=== PATIENT | female | born 1985 | race Caucasian/White ===

== ENCOUNTER 2017-02-02 19:01 | Inpatient (IN) | payer OTHER ==
[2017-02-02 21:37] LABS: BASOPHIL 0.2 % (0-2.0); EOSINOPHIL 0.7 % (0-4.5); MCH 29.7 pg (25.7-33.7); MCHC 33.8 g/dl (32.0-36.0); MEAN CELL VOLUME 87.9 fl (80-96); MEAN PLT VOLUME 9.1 fl (7.5-11.1); NEUTROPHILS 62.6 % (42.8-82.8); PLATELET COUNT 215 K/MM3 (134-434); RDW 13.6 % (11.6-15.6); WHITE BLOOD COUNT 7.5 K/mm3 (4.0-10.0)
[2017-02-02] MEDS ORDERED: PROMETHAZINE HCL 25 MG/1 ML VIAL IVPUSH ONE (21:42)
[2017-02-02] MEDS ORDERED: BUTORPHANOL TARTRATE 1 MG/ML VIAL IVPUSH PRN (21:42)
[2017-02-02] MEDS ORDERED: DEXTROSE 5%-LACTATED RINGERS 1,000 ML IV SCH (21:45)
[2017-02-02 21:51] LABS: INR 0.9 (0.82-1.09); PROTHROMBIN TIME (PATIENT) 9.9 SEC (9.98-11.88)
[2017-02-02 21:54] LABS: ACTIVATED PTT 26.7 SECONDS (26.9-34.4)
[2017-02-02 21:58] LABS: ANION GAP 10 (8-16); CALCIUM 8.9 mg/dL (8.5-10.1); CO2 23 mmol/L (21-32); CREATININE 0.5 mg/dL (0.55-1.02); GLUCOSE,RANDOM 77 mg/dL (74-106)
--- NOTE | 2017-02-02 22:11 | HP ---
Past Medical History - Primary Care Physician PCP:: Dandre Trammell - Admission Chief Complaint: 38 weeks, labor History of Present Illness: 31 yo f edc by sono 02/16/17, c/o contraction , cx 4 to 5 cm 75 vx -3 membrane bulging, fhr cat 1 , irregular contraction, History Source: Patient Limitations to Obtaining History: Language Barrier - Past Medical History ...: 2 ...Para: 0 ...Term: 0 ...: 1 ... Weeks Gestation by Dates: 38 ...EDC by Dates: 02/23/17 ...EDC by Sono: 02/16/17 Additional OB History: one delivery at 31 weeks - Past Surgical History Hx Myomectomy: No Hx Transabdominal Cerclage: No - Smoking History Smoking history: Never smoked Have you smoked in the past 12 months: No - Alcohol/Substance Use Hx Alcohol Use: No History of Substance Use: reports: None - Social History Usual Living Arrangement: Yes: With Spouse History of Recent Travel: No Home Medications - Allergies Allergies/Adverse Reactions: Allergies Allergy/AdvReac Type Severity Reaction Status Date / Time No Known Allergies Allergy Verified 09/18/15 00:04 - Home Medications Home Medications: Ambulatory Orders Vit #108/Iron/FA [ One Tablet] 1 each PO HS 09/03/15 Acetaminophen [Tylenol .Regular Strength -] 650 mg PO Q3H PRN #0 tablet Ibuprofen [Motrin -] 200 mg PO Q4H PRN #0 tablet 09/19/15 Miscellaneous Medical Supply [Breast Pump, Electronic] 1 each NR ASDIR #1 unit 09/19/15 Review of Systems - Review of Systems Constitutional: reports: No Symptoms Eyes: reports: No Symptoms HENT: reports: No Symptoms Neck: reports: No Symptoms Cardiovascular: reports: No Symptoms Respiratory: reports: No Symptoms Gastrointestinal: reports: No Symptoms Genitourinary: reports: No Symptoms Breasts: reports: No Symptoms Reported Musculoskeletal: reports: No Symptoms Integumentary: reports: No Symptoms Neurological: reports: No Symptoms Endocrine: reports: No Symptoms Hematology/Lymphatic: reports: No Symptoms Psychiatric: reports: No Symptoms Physical Exam - Maternity Constitutional: Yes: Well Nourished, No Distress, Calm Eyes: Yes: WNL, Conjunctiva Clear, EOM Intact HENT: Yes: WNL, Atraumatic, Normocephalic Neck: Yes: WNL, Supple, Trachea Midline Cardiovascular: Yes: WNL, Regular Rate and Rhythm Breast(s): Yes: WNL - Abdominal Exam/OB Fundal Height: 38 Number of Fetuses: Single Presentation: Vertex Contractions: Yes Regularity: Irregular Intensity: Mod/Strong Monitor Mode: External Heart Rate Location: [facility] Category: I Accelerations: Uniform - Vaginal Exam/OB Vaginal Bleediing: No Speculum Exam: No Dilatation (cm): 4 to 5 Effacement (%): 75 Amniotic Membrane Status: Bulging Presentation: Vertex/Position Station: -3 - Physical Exam Musculoskeletal: Yes: WNL Edema: Yes Edema: LLE: Trace, RLE: Trace Deep Tendon Reflex Grade: Normal +2 - Labs Lab Results: CBC, BMP 02/02/17 20:50 Problem List - Problems (1) with 38 completed weeks gestation Code(s): Z3A.38 - 38 WEEKS GESTATION OF (2) Labor established Code(s): CBT5101 - Assessment/Plan admit for vaginal delivery, fhm,
--- NOTE | 2017-02-02 22:23 | PN ---
Progress Note (short form) - Note Progress Note: cx 6 cm 80 vx -1 arom, clear, wants pain meds, fhr cat 1 Problem List - Problems (1) with 38 completed weeks gestation Code(s): Z3A.38 - 38 WEEKS GESTATION OF (2) Labor established Code(s): UPO9593 -
[2017-02-02 23:19] VITALS: BMI 49.1
[2017-02-03] MEDS ORDERED: FENTANYL/BUPIVACAINE/NS/PF - PCEA - 50 ML DISP.SYRIN EP SCH (02:00)
[2017-02-03] MEDS ORDERED: WITCH HAZEL 50% (TUCKS) 40 PAD/JAR PAD TP PRN (03:48)
[2017-02-03] MEDS ORDERED: oxyCODONE HCL 5 MG TABLET PO PRN (03:48)
[2017-02-03] MEDS ORDERED: BISACODYL 10 MG SUPP.RECT RC PRN (03:48)
[2017-02-03] MEDS ORDERED: BENZOCAINE 28 GM HEMORRHOIDAL OINTMENT TP PRN (03:48)
[2017-02-03] MEDS ORDERED: BENZOCAINE 20% 57 GM BOTTLE TP PRN (03:48)
[2017-02-03] MEDS ORDERED: METHYLERGONOVINE MALEATE 0.2 MG/1 ML AMP IM PRN (03:48)
[2017-02-03] MEDS ORDERED: D5W-LR W/ 20 UNITS OXYTOCIN 1,000 ML IV SCH (04:00)
[2017-02-03] MEDS: ACETAMINOPHEN 325 MG TABLET (FP) PO PRN ×3 (04:50→17:52)
[2017-02-03] MEDS: IBUPROFEN 600 MG TABLET (FP) PO PRN ×3 (04:50→17:51)
[2017-02-03] MEDS: FERROUS SO4 325 MG TABLET (FP) PO SCH ×2 (09:10→21:06)
[2017-02-03] MEDS: PRENATAL VITAMINS W/ FOLIC ACID TABLET (FP) PO SCH (09:12)
[2017-02-03] MEDS ORDERED: DIPHTH,PERTUSS(ACELL),TET 0.5 ML DISP.SYRIN IM ONE (10:00)
[2017-02-03] MEDS ORDERED: FLU VACC QS2017-18 36MOS UP/PF 60 MCG/0.5 ML SYRINGE IM ONE (10:00)
[2017-02-04] MEDS: ACETAMINOPHEN 325 MG TABLET (FP) PO PRN ×3 (02:49→18:35)
[2017-02-04] MEDS: IBUPROFEN 600 MG TABLET (FP) PO PRN ×3 (02:52→18:35)
[2017-02-04 08:15] LABS: BASOPHIL 0.4 % (0-2.0); EOSINOPHIL 0.9 % (0-4.5); MCH 29.6 pg (25.7-33.7); MCHC 33.4 g/dl (32.0-36.0); MEAN CELL VOLUME 88.7 fl (80-96); MEAN PLT VOLUME 8.7 fl (7.5-11.1); NEUTROPHILS 71.4 % (42.8-82.8); PLATELET COUNT 172 K/MM3 (134-434); RDW 13.8 % (11.6-15.6); WHITE BLOOD COUNT 10.8 K/mm3 (4.0-10.0)
[2017-02-04] MEDS: PRENATAL VITAMINS W/ FOLIC ACID TABLET (FP) PO SCH (09:26)
[2017-02-04] MEDS: FERROUS SO4 325 MG TABLET (FP) PO SCH ×2 (09:26→22:19)
--- NOTE | 2017-02-04 13:04 | PN ---
Post Progress Note - Subjective Subjective: 31 yo Para 2 status post vaginal delivery, seen and evaluated. Doing well Type of Delivery: Vital Signs: Vital Signs Temperature 98 F 02/04/17 08:50 Pulse Rate 69 02/04/17 08:50 Respiratory Rate 20 02/04/17 08:50 Blood Pressure 129/71 02/04/17 08:50 O2 Sat by Pulse Oximetry (%) Breast Exam: Yes: Soft Uterus: Yes: Fundus Firm Abdomen/GI: Yes: Abdomen soft, Tolerating PO Lochia: Yes: Rubra Lochia, amount: Small Extremities: Yes: Calves non-tender Perineum: Yes: Intact Activity: Ambulating - Labs Labs: CBC WBC 10.8 K/mm3 (4.0-10.0) H D 02/04/17 06:00 RBC 3.68 M/mm3 (3.60-5.2) 02/04/17 06:00 Hgb 10.9 GM/dL (10.7-15.3) 02/04/17 06:00 Hct 32.7 % (32.4-45.2) 02/04/17 06:00 MCV 88.7 fl (80-96) 02/04/17 06:00 MCH 29.6 pg (25.7-33.7) 02/04/17 06:00 MCHC 33.4 g/dl (32.0-36.0) 02/04/17 06:00 RDW 13.8 % (11.6-15.6) 02/04/17 06:00 Plt Count 172 K/MM3 (134-434) 02/04/17 06:00 MPV 8.7 fl (7.5-11.1) 02/04/17 06:00 Neutrophils % 71.4 % (42.8-82.8) 02/04/17 06:00 Lymphocytes % 22.3 % (8-40) D 02/04/17 06:00 Monocytes % 5.0 % (3.8-10.2) 02/04/17 06:00 Eosinophils % 0.9 % (0-4.5) 02/04/17 06:00 Basophils % 0.4 % (0-2.0) 02/04/17 06:00 Problem List - Problems (1) Status post vaginal delivery Code(s): [id number] - Assessment/Plan Status post vaginal delivery Stable Continue routine care
[2017-02-04] MEDS ORDERED: SENNOSIDES/DOCUSATE COMBO (SENNA PLUS) TABLET (UD) PO PRN (22:00)
[2017-02-05] MEDS: ACETAMINOPHEN 325 MG TABLET (FP) PO PRN (04:51)
[2017-02-05] MEDS: IBUPROFEN 600 MG TABLET (FP) PO PRN (04:53)
--- NOTE | 2017-02-05 05:31 | DS ---
Physical Exam-DELICATESSEN DEPARTMENT MANAGER Vital Signs: Vital Signs Temperature 97.9 F 02/04/17 22:00 Pulse Rate 88 02/04/17 22:00 Respiratory Rate 18 02/04/17 22:00 Blood Pressure 124/77 02/04/17 22:00 O2 Sat by Pulse Oximetry (%) Constitutional: Yes: Well Nourished Eyes: Yes: Conjunctiva Clear HENT: Yes: Atraumatic Neck: Yes: Supple Cardiovascular: Yes: Regular Rate and Rhythm Respiratory: Yes: Regular, CTA Bilaterally Gastrointestinal: Yes: Normal Bowel Sounds External Genitalia: Yes: Normal Vaginal Exam: Yes: Normal Cervix: Yes: Normal Uterus: Yes: Normal ....Post : Yes: Uterus firm Neurological: Yes: Alert, Oriented ...Motor Strength: WNL Psychiatric: Yes: Alert, Oriented Labs: CBC, BMP 02/04/17 06:00 02/02/17 20:50 Delivery - Delivery Type of Anesthesia: None Episiotomy/Laceration: None EBL (cc): 300 Delivery, Single - Stages of Labor Date 1st Stage Initiatied: 02/02/17 Time 1st Stage Initiated: 22:30 Date 2nd Stage Initiated: 02/03/17 Time 2nd Stage Initiated: 02:55 Date of Delivery: 02/03/17 Time of Delivery: 03:22 Time Placenta Delivered: 03:25 - 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 Gender: Male Weight: 6 lb 13 oz Position: Left, OA Total Hours ROM (Hrs/Mins): [id number] - 1 Minute Total Score: 9 5 Minutes Total Score: 9 - Feeding Plan Initial Plan: Elected not to breastfeed exclusively throughout hospitalization Discharge Summary Reason For Visit: LABOR ADMIT Current Active Problems Labor established (Acute) with 38 completed weeks gestation (Acute) Status post vaginal delivery (Acute) Procedures: Principal: Normal spontaneous vaginal delivery Hospital Course: Routine care Condition: Good - Instructions Diet, Activity, Other Instructions: Regular diet No douching, no sexual intercourse x 6 weeks F/U in clinic in 6 weeks Disposition: HOME - Home Medications Comprehensive Discharge Medication List: Ambulatory Orders Vit #108/Iron/FA [ One Tablet] 1 each PO HS 09/03/15 Acetaminophen [Tylenol .Regular Strength -] 650 mg PO Q3H PRN #0 tablet Ibuprofen [Motrin -] 200 mg PO Q4H PRN #0 tablet 09/19/15 Miscellaneous Medical Supply [Breast Pump, Electronic] 1 each NR ASDIR #1 unit 09/19/15
[2017-02-05] MEDS: FERROUS SO4 325 MG TABLET (FP) PO SCH (10:00)
[2017-02-05] MEDS: PRENATAL VITAMINS W/ FOLIC ACID TABLET (FP) PO SCH (10:00)
[2017-02-05 12:14] VITALS: BP 127/71; PULSE 73; TEMP 98.2
== END 2017-02-05 12:45 | disposition home or self-care (01) | DRG 560 ==
LOC: JDEL 19:01 → JLDR 20:20 → J3W 02-03 06:41
PROVIDERS: ADMIT Obstetrics & Gynecology; ATTEND Obstetrics & Gynecology
PROC: 10E0XZZ Delivery of Products of Conception, External Approach (ICD-10-PCS; principal; 2017-02-02)
DX: O80 Encounter for full-term uncomplicated delivery (principal); Z3A.28 28 weeks gestation of pregnancy; Z37.0 Single live birth
CPT/HCPCS: 36415; 59025; 59409; 80048; 85025; 85610; 85730; 86593; 86850; 86900; 86901; 90686; 90715; G0008

== ENCOUNTER 2017-04-08 16:26 | Emergency (ER) | payer OTHER ==
[2017-04-08 16:44] VITALS: BP 124/69; PULSE 88; TEMP 98.2; BMI 457.4
--- NOTE | 2017-04-08 17:29 | PDOC ---
Suture Removal/Wound Check HPI - History of Present Illness Chief Complaint: Suture/Staple Removal(Here) Stated Complaint: SUTURE REMOVAL Time Seen by Provider: 04/08/17 16:52 History Source: Yes: Patient Exam Limitations: Yes: No Limitations [facility] ED Treatment Type of procedure performed on last visit: Yes: Laceration Repair Tetanus Immunization: Yes: Up to Date Past History - Travel Traveled outside of the country in the last 30 days: No Close contact w/someone who was outside of country & ill: No - Past Medical History Allergies/Adverse Reactions: Allergies Allergy/AdvReac Type Severity Reaction Status Date / Time No Known Allergies Allergy Verified 04/08/17 16:41 Home Medications: Ambulatory Orders NK [No Known Home Medication] 04/08/17 Asthma: No Cancer: No Cardiac Disorders: No COPD: No DVT: No Dementia: No Diabetes: No HTN: No Seizures: No Thyroid Disease: No - Immunization History Immunization Up to Date: Yes - Suicide/Smoking/Psychosocial Hx Smoking History: Never smoked Have you smoked in the past 12 months: No Hx Alcohol Use: No Drug/Substance Use Hx: No Substance Use Type: None Hx Substance Use Treatment: No Suture Removal/Wound Check PE - Physical Exam Laceration/Wound Check Symptoms: reports: None Current Severity Level: None Maximum Severity Level: None Location of Laceration/Wound: left: Knee (7 intact sutures to knee ) *Review of Systems - Review of Systems Able to Perform ROS?: Yes Constitutional: Yes: See HPI. No: Symptoms Reported, Fever, Malaise HEENTM: No: Symptoms Reported : No: Symptoms Reported Integumentary: Yes: Symptoms Reported, See HPI, Other (7 sutures intact to ) Neurological: Yes: See HPI. No: Symptoms reported All Other Systems: Reviewed and Negative *DC/Admit/Observation/Transfer Diagnosis at time of Disposition: Visit for suture removal - Discharge Dispostion Disposition: HOME Condition at time of disposition: Stable Admit: No - Referrals Referrals: Unique Winston MD [Primary Care Provider] - - Patient Instructions - Post Discharge Activity
== END 2017-04-08 17:35 | disposition home or self-care (01) ==
LOC: JERFT 16:26
DX: Z48.02 Encounter for removal of sutures (principal)
CPT/HCPCS: 99281-25

== ENCOUNTER 2024-01-18 15:43 | Day surgery (SDC) | payer OTHER ==
[~2024-01-18 15:43] MED LIST: IRON DEXTRAN COMPLEX 1,000 MG in SODIUM CHLORIDE 250 ML IVPB ONE
[2024-01-18] MEDS: IRON DEXTRAN COMPLEX 1,000 MG in SODIUM CHLORIDE 250 ML IVPB ONE (16:25)
[2024-01-18 18:13] VITALS: BP 108/66; PULSE 74; RESP 18; TEMP 97.8
== END 2024-01-18 18:18 | disposition home or self-care (01) ==
LOC: J7W 15:43 → JONCNONCHE 15:43
PROVIDERS: ATTEND Student in an Organized Health Care Education/Training Program
PROC: 3E033GC Introduction of Other Therapeutic Substance into Peripheral Vein, Percutaneous Approach (ICD-10-PCS; principal; 2024-01-18)
DX: D50.8 Other iron deficiency anemias (principal)
CPT/HCPCS: 96365; J1750

== ENCOUNTER 2024-02-27 04:27 | Day surgery (SDC) | payer OTHER ==
[2024-02-15 11:52] VITALS: BMI 24.5
[2024-02-27 12:23] VITALS: TEMP 98.2
[2024-02-27 12:34] VITALS: RESP 18
[2024-02-27 12:37] VITALS: BP 121/76; PULSE 56
== END 2024-02-27 12:37 | disposition home or self-care (01) ==
LOC: JASU-ENDO 04:27
PROVIDERS: ATTEND Internal Medicine Gastroenterology
PROC: 0DB78ZX Excision of Stomach, Pylorus, Via Natural or Artificial Opening Endoscopic, Diagnostic (ICD-10-PCS; 2024-02-27)
PROC: 0DB68ZX Excision of Stomach, Via Natural or Artificial Opening Endoscopic, Diagnostic (ICD-10-PCS; 2024-02-27)
PROC: 0DBA8ZX Excision of Jejunum, Via Natural or Artificial Opening Endoscopic, Diagnostic (ICD-10-PCS; principal; 2024-02-27 11:00)
DX: K21.00 Gastro-esophageal reflux disease with esophagitis, without bleeding (principal); K29.50 Unspecified chronic gastritis without bleeding; Z98.84 Bariatric surgery status; Z98.0 Intestinal bypass and anastomosis status
CPT/HCPCS: 81025; 88305-TC; 88342-TC